=== PATIENT | male | born 1935 | race Caucasian/White ===

== ENCOUNTER 2019-05-31 07:01 | Emergency (ER) | payer MEDICARE, OTHER ==
--- NOTE | 2019-05-31 08:21 | EDM.PDOC ---
ED HPI GENERAL MEDICAL PROBLEM - General Chief Complaint: Upper Extremity Injury/Pain Stated Complaint: NUMBNESS IN LEFT ARM Time Seen by Provider: 05/31/19 07:50 Source of Information: Reports: Patient, Family History Limitations: Reports: No Limitations - History of Present Illness INITIAL COMMENTS - FREE TEXT/NARRATIVE: 84-year-old male was seen in the emergency room yesterday for pain in his left arm radiating to the left jaw along with numbness. A fairly complete workup was done and was negative. An MRI was suggested but the patient refused to be transferred and came home instead. He's been taking aspirin and it's improving but they wanted to be rechecked. He has now developed some slight swelling in the left wrist and stiffness with movement of the hand. The pain is improved. He has no shortness of breath or chest pain, no palpitations, no fever or chills or rash. Onset: Sudden (Pain started fairly suddenly yesterday afternoon) Improves with: Reports: Other (Aspirin helps) Worsens with: Reports: None left;hand Pain Score (Numeric/FACES): 4 - Related Data Allergies Allergy/AdvReac Type Severity Reaction Status Date / Time No Known Allergies Allergy Verified 05/31/19 07:29 Home Meds: Home Meds Aspirin [Ecotrin] 81 mg PO DAILY 05/29/14 [History] Clopidogrel [Plavix] 75 mg PO DAILY 05/29/14 [History] Famotidine 20 mg PO DAILY 05/29/14 [History] Metoprolol Tartrate 12.5 mg PO BID 05/29/14 [History] Simvastatin [Zocor] 80 mg PO BEDTIME 05/29/14 [History] Nitroglycerin [Nitrostat] 1 tab PO ASDIRECTED 05/31/19 [History] Past Medical History Cardiovascular History: Reports: High Cholesterol, Hypertension, [place], Stents Gastrointestinal History: Reports: Hiatal Hernia Oncologic (Cancer) History: Reports: Prostate - Past Surgical History GI Surgical History: Reports: Cholecystectomy Social & Family History - Tobacco Use Smoking Status *Q: Former Smoker Used Tobacco, but Quit: Yes Month/Year Tobacco Last Used: 09/29/87 - Recreational Drug Use Recreational Drug Use: No Review of Systems - Review of Systems Review Of Systems: See Below Constitutional: Denies: Fever Eyes: Reports: No Symptoms Mouth/Throat: Reports: No Symptoms (Some jaw discomfort has resolved) Respiratory: Reports: No Symptoms Cardiovascular: Reports: No Symptoms GI/Abdominal: Reports: No Symptoms Skin: Reports: Erythema (Complains some erythema is developing in the left arm) Neurological: Reports: Paresthesia (Left hand numbness and weakness) Psychiatric: Reports: No Symptoms ED EXAM, GENERAL - Physical Exam Exam: See Below Exam Limited By: No Limitations General Appearance: Alert, No Apparent Distress Eye Exam: Bilateral Eye: Normal Inspection Head: Atraumatic Respiratory/Chest: No Respiratory Distress, Lungs Clear Cardiovascular: Regular Rate, Rhythm Extremities: Other (Patient does have some mild swelling around the left wrist compared to the right, and mild discomfort with movement of the wrist. I cannot appreciate any other abnormality of the upper extremities) Course - Vital Signs Last Recorded V/S: Last Vital Signs Temp 97.2 F 05/31/19 07:27 Pulse 60 05/31/19 07:27 Resp 15 05/31/19 07:27 BP 113/66 05/31/19 07:27 Pulse Ox 98 05/31/19 07:27 - Orders/Labs/Meds Labs: Laboratory Tests 05/31/19 05/31/19 Range/Units 08:09 08:09 ESR 21 H (0-20) mm/hr Troponin I < 0.017 (0.000-0.056) ng/mL C-Reactive Protein 2.17 H (0.0-0.3) mg/dL - Re-Assessments/Exams Free Text/Narrative Re-Assessment/Exam: 05/31/19 08:20 Troponin and sedimentation rate and CRP were obtained. His records from yesterday were reviewed and they're entirety. The feeling was he was experiencing some type of cervical or upper extremity radiculopathy or soft tissue pain. An MRI of the head and/or neck was recommended, we are unable to do that here today. 05/31/19 08:44 Troponin is still 0, CRP is elevated at 2.17. Patient will be placed on a course of doxycycline not only to cover any early cellulitis but also for the anti-inflammatory properties of the medication as well, and the possibility of a tickborne illness. [facility] this [facility]. He can return sooner if worsening or he develops other concerns. Departure - Departure Time of Disposition: : Disposition: Home, Self-Care 01 Clinical Impression: Cellulitis Qualifiers: Site of cellulitis: extremity Site of cellulitis of extremity: upper extremity Laterality: left Qualified Code(s): L03.114 - Cellulitis of left upper limb - Discharge Information Instructions: Cellulitis, Adult Referrals: PCP,None [Primary Care Provider] - Forms: ED Department Discharge Care Plan Goals: Continue your current medications, and take doxycycline as directed for 10 days. Recheck later this week if not improving satisfactorily, or return anytime if worsening despite treatment.
== END 2019-05-31 09:09 | disposition home or self-care (01) ==
LOC: JP.ED 07:01
DX: L03.114 Cellulitis of left upper limb (principal); E78.00 Pure hypercholesterolemia, unspecified; I10 Essential (primary) hypertension; I25.2 Old myocardial infarction; Z79.82 Long term (current) use of aspirin; Z79.02 Long term (current) use of antithrombotics/antiplatelets; Z79.899 Other long term (current) drug therapy; Z87.891 Personal history of nicotine dependence
CPT/HCPCS: 36415; 84484; 85651; 86140; 99284

== ENCOUNTER 2020-03-16 07:59 | Emergency (ER) | payer MEDICARE, OTHER ==
[2020-03-16] MEDS ORDERED: Ketorolac 30 MG/ML SDV IM ONE (08:54)
--- NOTE | 2020-03-16 08:57 | EDM.PDOC ---
ED HPI GENERAL MEDICAL PROBLEM - General Chief Complaint: Upper Extremity Injury/Pain Stated Complaint: LEFT WRIST PAIN Time Seen by Provider: 03/16/20 08:44 Source of Information: Reports: Patient, RN Notes Reviewed History Limitations: Reports: No Limitations - History of Present Illness INITIAL COMMENTS - FREE TEXT/NARRATIVE: 85-year-old gentleman presents emergency department today complaint of left wrist pain he states he woke up early this morning severe pain has improved slightly he is not had any fevers no breaks in the skin. Does have a history of cellulitis in that arm couple years ago. 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 Left Wrist Pain Score (Numeric/FACES): 5 - Related Data Allergies Allergy/AdvReac Type Severity Reaction Status Date / Time No Known Allergies Allergy Verified 03/16/20 08:36 Home Meds: Home Meds Aspirin [Ecotrin] 81 mg PO DAILY 05/29/14 [History] Clopidogrel [Plavix] 75 mg PO DAILY 05/29/14 [History] Famotidine 20 mg PO DAILY 05/29/14 [History] Metoprolol Tartrate 12.5 mg PO BID 05/29/14 [History] Simvastatin [Zocor] 80 mg PO BEDTIME 05/29/14 [History] Nitroglycerin [Nitrostat] 1 tab PO ASDIRECTED 05/31/19 [History] Oxybutynin 5 mg PO DAILY 03/16/20 [History] Past Medical History HEENT History: Reports: Cataract Cardiovascular History: Reports: CAD, High Cholesterol, Hypertension, [place], Stents Gastrointestinal History: Reports: Hiatal Hernia Genitourinary History: Reports: BPH, Prostate Disorder, Urinary Incontinence Musculoskeletal History: Reports: Arthritis Oncologic (Cancer) History: Reports: Prostate - Infectious Disease History Infectious Disease History: Reports: Chicken Pox, Measles, Mumps - Past Surgical History HEENT Surgical History: Reports: Cataract Surgery Cardiovascular Surgical History: Reports: Coronary Artery Stent GI Surgical History: Reports: Cholecystectomy Male Surgical History: Reports: Prostatectomy Social & Family History - Tobacco Use Smoking Status *Q: Former Smoker Used Tobacco, but Quit: Yes Month/Year Tobacco Last Used: 09/29/1987 - Caffeine Use Caffeine Use: Reports: Coffee - Recreational Drug Use Recreational Drug Use: No Review of Systems - Review of Systems Review Of Systems: See Below Musculoskeletal: Reports: Joint Pain (Wrist pain) Skin: Reports: No Symptoms ED EXAM, GENERAL - Physical Exam Exam: See Below Free Text/Narrative:: Examination of the left wrist may be appreciated a slight amount of edema in the left hand he has full range of wrist and digits radial pulses +2 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 secondary to pain Exam Limited By: No Limitations General Appearance: Alert, WD/WN, No Apparent Distress Course - Vital Signs Last Recorded V/S: Last Vital Signs Temp 93.8 F L 03/16/20 08:35 Pulse 65 03/16/20 08:35 Resp 16 03/16/20 08:35 BP 130/83 03/16/20 08:35 Pulse Ox 95 03/16/20 08:35 - Orders/Labs/Meds Labs: Laboratory Tests 03/16/20 03/16/20 03/16/20 Range/Units 09:07 09:07 09:07 WBC 10.3 (4.5-11.0) K/uL RBC 4.99 (4.30-5.90) M/uL Hgb 14.8 (12.0-15.0) g/dL Hct 44.3 (40.0-54.0) % MCV 89 (80-98) fL MCH 30 (27-31) pg MCHC 33 (32-36) % Plt Count 204 (150-400) K/uL Neut % (Auto) 74 H (36-66) % Lymph % (Auto) 15 L (24-44) % [place] % (Auto) 9 H (2-6) % Eos % (Auto) 1 L (2-4) % Baso % (Auto) 0 (0-1) % Sodium 142 (140-148) mmol/L Potassium 4.6 (3.6-5.2) mmol/L Chloride 107 (100-108) mmol/L Carbon Dioxide 26 (21-32) mmol/L Anion Gap 9.4 (5.0-14.0) mmol/L BUN 23 H (7-18) mg/dL Creatinine 1.4 H (0.8-1.3) mg/dL Est Cr Clr Drug Dosing 36.64 mL/min Estimated GFR (MDRD) 48 L (>60) Glucose 109 H (74-106) mg/dL Uric Acid 6.4 (3.5-7.2) mg/dL Calcium 9.2 (8.5-10.1) mg/dL Meds: Medications Discontinued Medications Generic Name Dose Route Start Last Admin Trade Name Mendel PRN Reason Stop Dose Admin Ketorolac Tromethamine 30 mg 03/16/20 08:54 03/16/20 09:03 Toradol IM 03/16/20 08:55 30 mg ONETIME ONE Administration Departure - Departure Time of Disposition: 09:40 Disposition: Home, Self-Care 01 Condition: Fair Clinical Impression: Overuse injury - Discharge Information Instructions: Tendinitis, [id number] Referrals: Servando Vargas MD [Primary Care Provider] - Forms: ED Department Discharge Additional Instructions: Try anti-inflammatories such as Motrin or Aleve and naproxen for the next couple of days rest and ice your wrist, please followup with your primary care provider in 3-5 days if not better, please call return to the emergency department with worsening of symptoms. Sepsis Event Note (ED) - Evaluation Sepsis Screening Result: No Definite Risk - Focused Exam Vital Signs: Vital Signs Temp Pulse Resp BP Pulse Ox 03/16/20 08:35 93.8 F L 65 16 130/83 95 03/16/20 08:23 93.8 F L 65 16 130/83 95 - Assessment/Plan Plan: Assessment Acuity = acute Site and laterality = overuse injury inflammatory response right wrist Etiology = probable overuse injury yesterday Manifestations = none Location of injury = Home Lab values = CBC, BMP, uric acid all within normal limits Plan He had good relief with the Toradol injection plan is to use anti-inflammatories for the next couple days follow-up primary care 3 to 5 days if not better This note was dictated using [employer] voice recognition software please call with any questions on syntax or grammar.
== END 2020-03-16 09:51 | disposition home or self-care (01) ==
LOC: JP.ED 07:59
DX: M70.842 Other soft tissue disorders related to use, overuse and pressure, left hand (principal); I10 Essential (primary) hypertension; E78.00 Pure hypercholesterolemia, unspecified; I25.10 Atherosclerotic heart disease of native coronary artery without angina pectoris; I25.2 Old myocardial infarction; Z95.5 Presence of coronary angioplasty implant and graft; Z87.891 Personal history of nicotine dependence; Z79.82 Long term (current) use of aspirin; Z79.02 Long term (current) use of antithrombotics/antiplatelets; Z79.899 Other long term (current) drug therapy
CPT/HCPCS: 36415; 80048; 84550; 85025; 96372; 99283; J1885; 99281

== ENCOUNTER 2022-02-07 20:08 | Emergency (ER) | payer MEDICARE, OTHER ==
[2022-02-07] MEDS ORDERED: Sodium Chloride 0.9% 1,000 ML IV SCH (21:00)
[2022-02-07] MEDS ORDERED: cefTRIAXone 2 GM in Sodium Chloride 0.9% 50 ML IV ONE (22:59)
== END 2022-02-08 00:21 | disposition home or self-care (01) ==
LOC: JP.ED 20:08
DX: N30.01 Acute cystitis with hematuria (principal); I25.10 Atherosclerotic heart disease of native coronary artery without angina pectoris; E78.00 Pure hypercholesterolemia, unspecified; I10 Essential (primary) hypertension; I25.2 Old myocardial infarction; N40.0 Benign prostatic hyperplasia without lower urinary tract symptoms; Z95.5 Presence of coronary angioplasty implant and graft; Z79.82 Long term (current) use of aspirin; Z79.02 Long term (current) use of antithrombotics/antiplatelets; Z79.899 Other long term (current) drug therapy; Z20.822 Contact with and (suspected) exposure to COVID-19
CPT/HCPCS: 36415; 71045; 80053; 81001; 83605; 85025; 87086; 87088; 87186; 96365; 99283; 99285-25; J0696; J7030; U0002